=== PATIENT | male | born 1965 | race Asian ===

== ENCOUNTER 2023-08-25 11:06 | Day surgery (SDC) | payer OTHER ==
[~2023-08-25 11:06] MED LIST: Fluorouracil 100 MG, Enoxaparin 25 MG, EPINEPHrine 0.3 MG in Ophthalmic Irrigation Solu... IRR SCH
[2023-08-25] MEDS ORDERED: Cyclopentolate 1% Opth Drop 2 ML BOT ONE (13:14)
[2023-08-25] MEDS ORDERED: PHENYLephrine 2.5% Ophth Soln 15 ml Bottle ONE (13:14)
[2023-08-25] MEDS ORDERED: fentaNYL PF 100 MCG/2 ML SYRINGE ONE (13:48)
[2023-08-25] MEDS ORDERED: Midazolam HCl 2 mg/2 ml Vial ONE (13:48)
[2023-08-25] MEDS ORDERED: PROPOFOL 200 MG/20 ML VIAL ONE (13:58)
[2023-08-25] MEDS ORDERED: Lidocaine 4% PF 5 ML AMP ONE (13:58)
[2023-08-25] MEDS ORDERED: CEFAZOLIN 1 GM VIAL ONE (13:58)
[2023-08-25] MEDS ORDERED: Bupivacaine 0.75% 10 ML VIAL ONE (13:58)
[2023-08-25] MEDS ORDERED: Maxitrol 0.1% Opth Oint 3.5 GM TUBE ONE (13:58)
[2023-08-25] MEDS ORDERED: Triamcinolone 40 MG/ML VIAL ONE (13:58)
[2023-08-25] MEDS ORDERED: Lidocaine 1% PF 5 ML VIAL ONE (13:58)
== END 2023-08-25 15:35 | disposition home or self-care (01) ==
LOC: SDC 11:06
PROVIDERS: ATTEND Ophthalmology Retina Specialist
PROC: 08U03JZ Supplement of Right Eye with Synthetic Substitute, Percutaneous Approach (ICD-10-PCS; principal; 2023-08-25)
PROC: 08N43ZZ Release Right Vitreous, Percutaneous Approach (ICD-10-PCS; principal; 2023-08-25)
DX: H33.021 Retinal detachment with multiple breaks, right eye (principal)
CPT/HCPCS: 67025; 93005; 93010; J0171; J0690; J1650; J2250; J2704; J3301; J3490; J9190